=== PATIENT | female | born 1965 | race Hispanic/Latino ===

== ENCOUNTER 2016-10-15 11:59 | Emergency (ER) | payer OTHER ==
[~2016-10-15] VITALS: Ht 154.9 cm; Wt 68.2 kg
[2016-10-15 12:02] VITALS: BP 124/87; PULSE 100; RESP 20; O2SAT 96
[2016-10-15] MEDS ORDERED: DOCU-41 PO (12:10)
[2016-10-15] MEDS ORDERED: METF1000 PO (12:10)
[2016-10-15] MEDS ORDERED: INSU100I13 SUBQ (12:10)
[2016-10-15] MEDS ORDERED: ACET325T51 PO (12:10)
[2016-10-15 13:52] LABS: BASOPHILS % (AUTO) 0.9 % (0-3); EOSINOPHILS % (AUTO) 6.5 % (0-5); MONOCYTES % (AUTO) 6.7 % (4-12); Mean Corpuscular Hemoglobin 29.6 pg (27.0-35.0); Mean Corpuscular Volume 87.1 fL (81-100); NEUTROPHILS % (AUTO) 67.7 % (40-74); Platelet Count 246 bil/L (150-400)
[2016-10-15] MEDS ORDERED: 0.9% Sodium Chloride 1,000 ML IV ONE (13:54)
[2016-10-15] MEDS ORDERED: Pantoprazole 4 mg/mL 10 mL Inj IVPUSH ONE (13:55)
[2016-10-15] MEDS ORDERED: Ondansetron 2 mg/mL 2 mL Inj IVPUSH ONE (13:55)
--- NOTE | 2016-10-15 14:01 | ED.REPORT ---
HPI-Abd Pain F 40 and Over Date of Service Oct 15, 2016 ED Provider: Alverto Elizondo PA-C Kathrine is a 51-year-old female with a history of diabetes who presents with a chief complaint of abdominal pain. She reports a one-year history of pulsating right upper quadrant pain that has been worsening over the last several weeks and today she rates at 10 over 10. She also complains of stabbing epigastric pain that began today shortly after eating. She had one episode of vomiting, though she is unsure if there was blood as she "did not look." He admits night sweats. Denies fever, chills bloody/tarry stools or bowel changes, urinary symptoms, vaginal bleeding/discharge. Her last mental period was 4 years ago. She was recently placed on metformin for diabetes and was due to start insulin treatment today. She had a normal gallbladder scan in February and has plans for GI follow-up on the . Reports a history of appendectomy. Nursing Notes Stated Complaint: ABDOMINAL PAIN Chief Complaint: Female Abdominal Pain Nursing Notes Reviewed: Yes Allergies: Coded Allergies: No Known Allergies (Verified , 10/15/16) Scheduled Insulin Glargine (Lantus U100 Solostar Insulin Pen) 100 Unit/1 Ml Insuln.pen 14 UNIT SUBQ QPM Metformin (Glucophage) 1,000 Mg Tablet 1,000 MG PO BID Omeprazole (Omeprazole) 20 Mg Capsule.dr 20 MG PO DAILY Scheduled PRN Acetaminophen (Acetaminophen) 325 Mg Tablet 650 MG PO Q6H PRN PRN For Pain Docusate Sodium (Colace) 100 Mg Capsule 100 MG PO DAILY PRN PRN For Constipation General Time Seen by MD: 13:22 Chief Complaint Abdominal pain Sudden in Onset?: No Past Medical History Past Medical History Reports: Diabetes mellitus Review of Systems General: Denies fever, chills, malaise. Respiratory: Denies dyspnea, cough, shortness of breath, wheezing. Cardiovascular: Denies chest pain, palpitations. Gastrointestinal: Admits, abdominal pain, vomiting. Denies diarrhea, melena, hematochezia. Genitourinary: Denies frequency, urgency, dysuria, hematuria. Denies vaginal bleeding/discharge. Otherwise as noted in HPI. Physical Exam General: Well appearing, well developed, well nourished, mild distress. Head: Atraumatic, normocephalic. Eyes: No scleral icterus or injection. No discharge. Vision grossly intact. ENT: Voice clear, hearing grossly intact. Respiratory: Regular rate and rhythm. Breath sounds present, clear to auscultation and equal bilaterally. No respiratory distress. No increased work of breathing, speaks in complete sentences. Cardiovascular: Regular rate and rhythm, without murmur, gallop or rub. No pedal edema. Gastrointestinal: Abdomen moderately tender in the right quadrants and epigastric without guarding or rebound. Bowel sounds hypoactive. Skin: Warm and dry. Neurological: Grossly nonfocal. Psychological: Alert and oriented. Speech appropriate, linear and logical. Behavior appropriate. Vital Signs Vital Signs (First) Date Time Temp Pulse Resp B/P Pulse Ox O2 Delivery O2 Flow Rate FiO2 10/15/16 12:02 36.1 100 20 124/87 96 Room Air Initial VS: Reviewed, Vital signs normal Interpretation & Diagnostics Lab Results Interpretation Result Diagram: 10/15/16 1345 10/15/16 1345 Test 10/15/16 13:45 10/15/16 13:49 White Blood Count 9.4th/mm3 (3.8-10.1) Red Blood Count 4.49mil/mm3 (3.90-5.20) Hemoglobin 13.3g/dL (12.0-15.6) Hematocrit 39.1% (35.0-46.0) Mean Corpuscular Volume 87.1fL (81-100) Mean Corpuscular Hemoglobin 29.6pg (27.0-35.0) Mean Corpuscular Hemoglobin Concent 34.0% (32.0-37.0) Red Cell Distribution Width 12.8% (12.3-15.4) Platelet Count 246bil/L (150-400) Neutrophils (%) (Auto) 67.7% (40-74) Lymphocytes (%) (Auto) 18.1% (14-46) Monocytes (%) (Auto) 6.7% (4-12) Eosinophils (%) (Auto) 6.5% (0-5) Basophils (%) (Auto) 0.9% (0-3) Sodium Level 135mEq/L (134-144) Potassium Level 3.6mEq/L (3.5-5.2) Chloride Level 100mEq/L (97-108) Carbon Dioxide Level 20mmol/L (18-29) Blood Urea Nitrogen 12mg/dL (6-24) Creatinine 0.43mg/dL (0.57-1.00) Estimat Glomerular Filtration Rate 222mL/min (>59) Glucose Level 229mg/dL (60-99) Calcium Level 9.2mg/dL (8.5-10.1) Total Bilirubin 0.7mg/dL (0.0-1.2) Aspartate Amino Transf (AST/SGOT) 22U/L (0-50) Alanine Aminotransferase (ALT/SGPT) 18U/L (0-32) Alkaline Phosphatase 107U/L (25-150) Total Protein 7.7g/dL (6.4-8.4) Albumin 4.3g/dL (3.4-5.0) Lipase 38U/L (13-60) Hold Love Top Tube Received (Received) Urine Color Yellow (YELLOW) Urine Appearance Hazy (CLEAR,HAZY) Urine pH 5.5 (5.0-8.0) Urine Specific Blaine 1.030 (1.003-1.035) Urine Protein Negativemg/dL (NEG,TRACE) Urine Glucose (UA) Negativemg/dL (NEGATIVE) Urine Ketones 80mg/dL (NEGATIVE) Urine Occult Blood Negative (NEGATIVE) Urine Nitrite Negative (NEGATIVE) Urine Bilirubin Negative (NEGATIVE) Urine Urobilinogen Normalmg/dL (NORMAL) Urine Leukocyte Esterase Negative (NEGATIVE) Urine RBC 0-2/hpf (0-2) Urine WBC 0-5/hpf (0-5) Urine Epithelial Cells Occasional/hpf (NONE-MOD) Urine Crystals None seen (NONE SEEN) Urine Bacteria Few/hpf (NONE-FEW) Urine Hyaline Casts None/lpf (NONE) Urine Granular Casts None seen (NONE SEEN) Urine Waxy Casts None seen (NONE SEEN) Urine Red Blood Cell Casts None seen (NONE SEEN) Urine White Blood Cell Casts None seen (NONE SEEN) Urine Mucus Present (None Seen) Urine Trichomonas None seen (NONE SEEN) Urine Yeast None (NONE SEEN) Urinalysis Comment None Urine Culture Reflexed Not indicated CT Abd / Pelvis Interpretation PROCEDURE: CT ABDOMEN AND PELVIS WITH CONTRAST ([id number]-7102) INDICATIONS: abdominal pain IMPRESSION: 1. Fluid filled small bowel loops and mildly prominent lymph nodes, suggestive of gastroenteritis. 2. Appendix not seen. No evidence of appendicitis. Re-Eval/Medical Decision Med Decision/Clinical Course Kira is a 51-year-old female who presents with a one-year history of right- sided upper abdominal pain as well as new onset epigastric pain. History of appendectomy. History and physical is initially concerning for possibility of bleeding ulcer, cholecystitis, pancreatitis, with moderate right sided and epigastric tenderness. CBC, CMP, lipase are within acceptable limits, showing moderately elevated glucose. CT of the abdomen and pelvis reveals mild lymphadenopathy which the radiologist states is consistent with gastroenteritis. The patient responded well to 1 L of fluid, pantoprazole, ondansetron and morphine. She feels improved and ready for discharge. I believe she is stable. Discharge with a prescription for omeprazole, advising primary care follow-up, GI follow-up as planned. Provided return precautions. The patient and her family understand and are comfortable with the plan. All questions answered to the best my ability via acidizer helper. Discharge & Departure Primary Impression: Abdominal pain Abdominal location: upper abdomen Qualified Code: R10.10 - Upper abdominal pain, unspecified Disposition: Home Discharge Condition All VS Reviewed: Yes Condition: Stable Patient Instructions: Acute Abdominal Pain (ED) Additional Instructions: Evaluation for abdominal pain in the emergency department. CT scan and labs are both reassuring that your pain is not likely to be due to an immediately dangerous cause. I believe you are stable and safe to be discharged to home. I will give you a prescription for omeprazole to be taken once a day for the next 2 weeks. Please follow-up with your primary care provider if your pain continues. Follow up with GI on the as planned. Return to emergency department for any new or worsening symptoms including increasing pain, fever, vomiting blood or passing black/tarry stool Evaluacin del dolor abdominal en el Departamento de Emergencia. Ambos exmenes , la Tomografa computarizada y los exmenes de laboratorio nos tranquilizan y nos hacen pensar que wan dolor probablemente no se debe a lovely causa inmediatamente peligrosa. Creo que usted est estable y sequeira para ser nguyễn de ronald a casa. Le dunia lovely receta para que Omeprazol para que lo tome lovely vez al da nikkie las 2 semanas siguientes. Si el dolor contina por favor hgase tony nuevamente por wan proveedor de blake primaria. Hgase tony en Gastroenterologa (GI) el 23, fay felecia lo amaro planeado. Vuelva al Departamento de Emergencias por cualquier sntoma nuevo o si cualquier sntoma que empeore incluyendo aumento del dolor, fiebre, vmitos con paulina o si sebas heces (brittany) salen negras/alquitranadas GR/Emergency Spill Response Technician Referrals: [facility] EDSupervising Provider for APC: Jason Cali DO copies to: [facility] Alverto Elizondo PA-C Oct 15, 2016 14:01
[2016-10-15 14:03] LABS: APPEARANCE,URINE HAZY (CLEAR,HAZY); COLOR,URINE YELLOW (YELLOW); PH,URINE 5.5 (5.0-8.0)
[2016-10-15 14:04] LABS: OCCULT BLOOD,URINE NEGATIVE (NEGATIVE)
[2016-10-15 14:05] LABS: UROBILINOGEN,URINE NORMAL (NORMAL)
--- NOTE | 2016-10-15 15:26 | DRSVH ---
PROCEDURE: CT ABDOMEN AND PELVIS WITH CONTRAST ([id number]) INDICATIONS: abdominal pain TECHNIQUE: After the administration of intravenous contrast, 5 mm thick sections acquired from the diaphragm to the symphysis. 5 mm coronal and sagittal reformats were acquired. For radiation dose reduction, the following was used: automated exposure control, adjustment of mA and/or kV according to patient siz e. COMPARISON: None. FINDINGS: Image quality: Excellent. ABDOMEN: Lung bases: Calcified granuloma within the right lower lobe midportion posteriorly. Lung bases are o therwise clear. Heart size is normal. Solid organs: Liver is enlarged, measuring 19.5 cm, and is otherwise within normal limits. Spleen is within normal limits. Gallbladder is within normal limits. Biliary system is non dilated. Pancreas enhances normally. No adrenal nodules. Kidneys demonstrate normal size and enhancement, without hy dronephrosis. Peritoneum and bowel: There are a few mildly distended fluid-filled small bowel loops within the ant erior pelvis and abdomen. Bowel loops demonstrate otherwise normal wall thickness and caliber. No fr ee fluid or air. Appendix not seen. No evidence of appendicitis. Nodes and vessels: No retroperitoneal or mesenteric adenopathy by size criteria. A few mildly promi nent mesenteric lymph nodes are present. Aorta and inferior vena cava are normal in size. Miscellaneous: No ventral hernias. PELVIS: Genitourinary: Bladder wall thickness is normal. Miscellaneous: No inguinal hernias or adenopathy. Bones: No suspicious bony lesions. No vertebral body compression fractures. IMPRESSION: 1. Fluid filled small bowel loops and mildly prominent lymph nodes, suggestive of gastroenteritis. 2. Appendix not seen. No evidence of appendicitis. Dictated by: Zahira Nieves M.D. on 10/15/2016 at 15:20 Approved by: Zahira Nieves M.D. on 10/15/2016 at 15:24
[2016-10-15] MEDS ORDERED: OMEP20CA11 PO (15:35)
[2016-10-15 16:38] VITALS: BP 133/79; PULSE 75; RESP 16; O2SAT 96
== END 2016-10-15 16:40 | disposition home or self-care (01) ==
LOC: SED 11:59
DX: R10.13 Epigastric pain (principal); R11.10 Vomiting, unspecified; E11.9 Type 2 diabetes mellitus without complications; Z90.89 Acquired absence of other organs; Z79.84 Long term (current) use of oral hypoglycemic drugs; Z79.4 Long term (current) use of insulin
CPT/HCPCS: 36415; 74177; 80053; 81000; 83690; 85025; 96361; 96374; 96375; 99285; J2270; J2405; J7030; Q9967

== ENCOUNTER 2016-12-09 01:32 | Day surgery (SDC) | payer OTHER ==
[~2016-12-09] VITALS: Ht 152.4 cm; Wt 69.0 kg
[~2016-12-09 01:32] MED LIST: ACET325T51 PO; DOCU-41 PO; INSU100I13 SUBQ; METF1000 PO; OMEP20CA11 PO
[2016-12-09] MEDS ORDERED: 0.9% Sodium Chloride 1,000 ML IV SCH (06:00)
[2016-12-09] MEDS ORDERED: Sodium Chloride LOK Flush 10 mL Syringe IV PRN (06:00)
[2016-12-09] MEDS ORDERED: fentaNYL-PF 50 mCg/mL 2 mL Inj IVPUSH PRN (06:00)
[2016-12-09 08:42] VITALS: BP 113/71; PULSE 65; O2SAT 99
[2016-12-09 10:32] VITALS: BP 108/70; PULSE 78; RESP 16; O2SAT 98
[2016-12-09 10:42] VITALS: BP 120/82; PULSE 72; RESP 16; O2SAT 99
[2016-12-09 10:51] VITALS: BP 106/72; PULSE 71; RESP 16; O2SAT 98
--- NOTE | 2016-12-09 11:17 | ENDO ---
[address] [address] ENDOSCOPY PROCEDURE PATIENT: Laura GOEL : 1965 MR#: [id number] ADMIT: 12/09/2016 JOB ID: [id number] ESOPHAGOGASTRODUODENOSCOPY INDICATION: Abdominal pain. ASA CLASSIFICATION: 2. MALLAMPATI SCORE: 2. MEDICATIONS: 1. Versed 4 mg. 2. Fentanyl 100 mcg. INSTRUMENT USED: GIF-H180J. PROCEDURE DETAILS: After informed consent was obtained, the patient was brought into the GI suite, where she was placed on oxygen via nasal cannula and monitored with continuous pulse oximeter, telemetry and blood pressure monitoring. A time-out was performed. Then, she was placed in a left lateral decubitus position and medications were administered for sedation. A bite block was placed. The standard esophagogastroduodenoscopy scope was inserted through the bite block and advanced under direct visualization to the second portion of the duodenum without difficulty. FINDINGS: 1. Normal appearing duodenal bulb, first and second portion. Multiple random biopsies were obtained. 2. Normal appearing pylorus. In the antrum, body and fundus of the stomach, there was erythema suggestive of gastritis. Multiple random biopsies were obtained. 3. Normal appearing GE junction with a regular Z-line at 37 cm. 4. Normal appearing esophagus. IMPRESSION: 1. Gastritis. 2. Otherwise normal exam to second portion of duodenum. RECOMMENDATIONS: 1. Await biopsy results. 2. Proceed to colonoscopy. COMPLICATIONS: None. ESTIMATED BLOOD LOSS: Less than 5 mL. PROCEDURE PERFORMED: Colonoscopy. INDICATION: Colon cancer screening. Please see above for ASA classification, Mallampati score and medications. INSTRUMENT USED: PCF-180 H AL. Prep quality was good. PROCEDURE DETAILS: After completion of the EGD exam, the patient was turned and then a digital rectal exam was performed, which was unremarkable. The colonoscope was then inserted into the rectum and advanced under direct visualization to the cecum, which was identified by the presence of the ileocecal valve and appendiceal orifice. Once the cecum was reached, the colonoscope was withdrawn back into the rectum as the mucosa and lumen were examined. In the rectum, retroflexion was performed. Following retroflexion, remaining air in the rectum was suctioned and procedure was completed. FINDINGS: 1. Normal exam from rectum to cecum. 2. Retroflexed views in the rectum revealed small internal hemorrhoids. IMPRESSION: 1. Small internal hemorrhoids, otherwise normal exam. RECOMMENDATIONS: Repeat colonoscopy in 10 years, sooner if symptoms should dictate. COMPLICATIONS: None, ESTIMATED BLOOD LOSS: 0.
--- NOTE | 2016-12-10 17:42 | PATH ---
SURGICAL PATHOLOGY Attending Physician:Kristina Hernandez CASE STATUS: Signed Out PATIENT NAME: Laura GOLE PID: [id number] : 1965 DATE COLLECTED:12/09/2016 17:18 SPECIMEN: 1: Duodenum, Biopsy 2: Duodenum, Biopsy 3: Gastric, Biopsy CLINICAL HISTORY: 1. DUODENAL BX 2. DUODENAL BULB BX 3. GASTRIC BX FINAL DIAGNOSIS: 1. Duodenal Biopsy: Duodenal mucosa with no diagnostic abnormality. Negative for active inflammation, features of sprue, dysplasia, or malignancy. 2. Duodenum, Biopsy: Portion of duodenal mucosa with prominent Wang' s glands and otherwise no diagnostic abnormality. Negative for active inflammation, features of sprue, dysplasia, or malignancy. 3. Gastric Biopsy: Chronic active gastritis. Rare foci of intestinal metaplasia are present. Negative for dysplasia and malignancy. Immunohistochemistry studies pending for H. pylori; results will be reported as an addendum. ICD10: K29.7 GROSS DESCRIPTION: The specimen is received in three formalin filled containers labeled with the patient's name. 1). The specimen is sublabeled "duodenal" and consists of 3 portions of tissue which aggregate to 0.3 x 0.3 x 0.2 CM. The specimen is entirely submitted in cassette 1A. 2). The specimen is sublabeled "duodenal bulb" and consists of 2 portions of tissue which aggregate to 0.3 x 0.3 x 0.2 CM. The specimen is entirely submitted in cassette 2A. 3). The specimen is sublabeled "gastric" and consists of 2 portions of tissue which aggregate to 0.3 x 0.3 x 0.2 CM. The specimen is entirely submitted in cassette 3A. 12/09/2016 [facility] ICD-9 CODES: CPT CODES: 1: 62072 2: 56272 3: 74812, 04312 PROCEDURE/ADDENDA: Addendum SPI Addendum Diagnosis Part 3: An immunostain for Helicobacter organisms is positive. Addendum Comment {Not Entered} Electronically Signed Out Volodymyr Hallman MD Electronically Signed Out Fozia Waters MD [facility] Pathology [facility] [place] [address] Technical component performed at [facility], [address], [address]
== END 2016-12-09 23:59 | disposition home or self-care (01) ==
LOC: END 01:32
PROVIDERS: ATTEND Internal Medicine Gastroenterology
DX: Z12.11 Encounter for screening for malignant neoplasm of colon (principal); K64.8 Other hemorrhoids; K29.50 Unspecified chronic gastritis without bleeding; R10.11 Right upper quadrant pain; R07.89 Other chest pain; E11.9 Type 2 diabetes mellitus without complications; Z79.84 Long term (current) use of oral hypoglycemic drugs; Z79.4 Long term (current) use of insulin
CPT/HCPCS: 43239; 99153; G0121; G0500; J7030